=== PATIENT | male | born 1960 | race Two or more races ===

== ENCOUNTER 2020-08-14 19:38 | Emergency (ER) | payer MEDICARE, OTHER ==
[~2020-08-14] VITALS: Ht 170.2 cm; Wt 68.0 kg
[2020-08-14] MEDS ORDERED: DEXTROSE 50%-WATER 50 ML DISP.SYRIN ONE (19:49)
--- NOTE | 2020-08-14 19:49 | NUR ---
PT BIBRA FROM HOME TO ER BED 10 C/O LOW BLOOD SUGAR. PATIENT IS ALERT AND ORIENTED x4AND BG AT 28MG/DL ON ARRIVAL. PATIENT IS BREATHING EVENLY AND UNLABORED ON ROOM AIR. CONNECTED TO THE MONITOR.
[2020-08-14] MEDS: DEXTROSE 50%-WATER 50 ML DISP.SYRIN IV ONE (19:57)
--- NOTE | 2020-08-14 19:58 | NUR ---
ASSOCIATE BROKER AT BEDSIDE FOR BLOOD DRAW
--- NOTE | 2020-08-14 20:01 | NUR ---
XRAY AT BEDSIDE
[2020-08-14 20:05] LABS: BASOPHILS % (AUTO) 0.3 % (0.0-2.0); EOSINOPHILS % (AUTO) 1.4 % (0.0-6.0); HEMATOCRIT 27 % (39-51); HEMOGLOBIN 8.4 g/dL (13.5-17.5); LYMPHOCYTES # (AUTO) 1.2 /CMM (0.8-4.8); LYMPHOCYTES % (AUTO) 11.7 % (20.0-44.0); MEAN CORPUSCULAR HGB CONC 31 g/dl (31.0-36.0); MEAN CORPUSCULAR VOLUME 86 fL (80-96); MONOCYTES # (AUTO) 0.8 /CMM (0.1-1.30); MONOCYTES % (AUTO) 7.9 % (2.0-12.0); NEUTROPHILS # (AUTO) 8.2 /CMM (1.8-8.9); NEUTROPHILS % (AUTO) 78.7 % (43.0-81.0); WHITE BLOOD COUNT (AUTO) 10.4 K/uL (4.3-11.0)
--- NOTE | 2020-08-14 20:11 | NUR ---
URINE SENT TO LAB.
[2020-08-14 20:12] LABS: CALCIUM, SERUM 8.3 mg/dL (8.5-10.1); CARBON DIOXIDE 18 mmol/L (21-32); CHLORIDE 97 mmol/L (98-107); CREATININE 2.8 mg/dL (0.6-1.3); GLUCOSE 170 mg/dL (74-106); POTASSIUM 5.3 mmol/L (3.5-5.1); SODIUM SERUM 129 mmol/L (136-145); UREA NITROGEN, BLOOD 29 mg/dL (7-18)
[2020-08-14 20:18] LABS: BILIRUBIN,URINE Negative (NEGATIVE); COLOR,URINE DARK YELLOW (YELLOW); LEUKOCYTE ESTERASE ,URINE Large (NEGATIVE); NITRITE, URINE Negative (NEGATIVE); PROTEIN,URINE >=300 mg/dl (NEGATIVE); UGLUCOSE Negative (NEGATIVE); UROBILINOGEN,URINE 0.2 EU/dL (0.2)
[2020-08-14 20:27] LABS: ALANINE AMINOTRANSFERASE 13 U/L (12-78); ALBUMIN 2.2 g/dL (3.4-5.0); ALKALINE PHOSPHATASE 192 U/L (46-116); ASPARTATE AMINOTRANSFERASE 30 U/L (15-37); BILIRUBIN,DIRECT 0.1 mg/dL (0.0-0.2); BILIRUBIN,TOTAL 0.1 mg/dL (0.2-1.0); TOTAL PROTEIN, SERUM 8.2 g/dL (6.4-8.2)
[2020-08-14 20:29] LABS: BACTERIA,URINE Many /HPF (None Seen); RBC,URINE TOO NUMEROUS TO COUN /HPF (0-2); SQUAMOUS EPITHELIAL CELL,UR Few /HPF (None Seen); WBC,URINE TOO NUMEROUS TO COUN /HPF (0-3)
[2020-08-14 21:13] LABS: PLATELET COUNT (AUTO) 629 /CMM (150-450)
[2020-08-14] MEDS: CEFTRIAXONE 1GM BAG (ER ONLY) 50 ML IV ONE (21:16)
[2020-08-14] MEDS ORDERED: CEFTRIAXONE 1GM BAG (ER ONLY) 50 ML IV ONE (21:18)
--- NOTE | 2020-08-14 21:41 | NUR ---
SPOKE WITH THERAPIST RRT REGARDING PT TRANSFER, SHE IS LOOKING FOR AN ACCEPTING FACILITY.
--- NOTE | 2020-08-14 21:59 | NUR ---
PIOTR LARKIN TALKING TO DR. MARES REGARDING PT.
[2020-08-14] MEDS: IV NS 0.9% 1,000 ML BAG IV ONE (22:30)
--- NOTE | 2020-08-14 23:02 | NUR ---
TRANSFER INFORMATION: PT ACCEPTED AT [facility] ACCEPTING MD VARELA PT WILL GO TO ROOM 617 PHONE NUMBER FOR REPORT TRANSPORT: [facility] ETA 60-90MIN
--- NOTE | 2020-08-14 23:31 | NUR ---
report given to Lashanda YODER at [facility] for EUGENIA.
--- NOTE | 2020-08-14 23:47 | NUR ---
per md's order increased rate of d10 to 150ml/hr
--- NOTE | 2020-08-15 00:10 | NUR ---
report given to transport team for cate. and ttransferring responsibilities.
[2020-08-15 00:12] VITALS: BP 106/67
== END 2020-08-15 00:16 | disposition short-term general hospital (02) ==
LOC: ER 19:39
DX: E11.649 Type 2 diabetes mellitus with hypoglycemia without coma (principal); E87.5 Hyperkalemia; N39.0 Urinary tract infection, site not specified; E78.5 Hyperlipidemia, unspecified; Z85.46 Personal history of malignant neoplasm of prostate; I11.9 Hypertensive heart disease without heart failure; Z20.822 Contact with and (suspected) exposure to COVID-19
CPT/HCPCS: 36415; 71045; 80048; 80076; 81001; 82962 ×6; 83605; 84145; 84484; 85025; 87040 ×2; 87077; 87086; 87186; 87426; 93005; 96361; 96365; 96375; 99285; J0696; C9803